=== PATIENT | male | born 1960 | race African-American/Black ===

== ENCOUNTER 2017-12-22 16:44 | Emergency (ER) | payer OTHER ==
[2017-12-22 16:56] VITALS: BP 142/74
--- NOTE | 2017-12-22 16:58 | ER Document Report ---
HPI - HPI Pain Level: 3 Notes: Patient presents with chief complaint of left knee pain. Patient reports this is been ongoing for approximately 1 year but worse over the last several weeks. Patient denies any new injury. Patient states he had been out of his meloxicam since August, recently had it refilled typically the meloxicam works well for him however this time he cannot get the pain under control. Patient is pending physical therapy start date of 12/29. Patient is able to bear weight on his knee. Past Medical History - General Information source: Patient - Social History Smoking Status: Never Smoker Lives with: Family Family History: Reviewed & Not Pertinent Past Surgical History: Reports: None - Immunizations Immunizations up to date: Yes Vertical Provider Document - CONSTITUTIONAL Notes: PHYSICAL EXAMINATION: GENERAL: Well-appearing, well-nourished and in no acute distress. HEAD: Atraumatic, normocephalic. EYES: Pupils equal round extraocular movements intact, conjunctiva are normal. ENT: Nares patent NECK: Normal range of motion LUNGS: No respiratory distress Musculoskeletal: Limitation to range of motion in left knee, no erythema or ecchymosis noted, mild swelling noted. Normal motor and sensation distal to injury. NEUROLOGICAL: Normal speech, normal gait. PSYCH: Normal mood, normal affect. SKIN: Warm, Dry, normal turgor, no rashes or lesions noted. - INFECTION CONTROL TRAVEL OUTSIDE OF THE [place] IN LAST 30 DAYS: No Course - Re-evaluation Re-evalutation: Patient declines x-rays as he has not had any new injury. Examination is benign other than mild edema. Patient will be treated with analgesics, keep appointments as already scheduled for physical therapy. Continue Mobic. Follow -up with primary care. - Vital Signs Vital signs: Temp Pulse Resp BP Pulse Ox 98.8 F 79 16 142/74 H 99 12/22/17 16:54 12/22/17 16:54 12/22/17 16:54 12/22/17 16:54 12/22/17 16:54 Procedures - Immobilization Left knee Immobilizer type: Crutches, Knee immobilizer Discharge - Discharge Clinical Impression: Knee pain, left Qualifiers: Chronicity: acute Qualified Code(s): M25.562 - Pain in left knee Condition: Stable Disposition: HOME, SELF-CARE Additional Instructions: SUSPECTED INTERNAL KNEE INJURY: The examiner of your injured knee suspects an internal injury to the cartilage or internal ligaments. This must be further investigated by an sports medicine specialist. The knee should be protected, ice packed, and elevated while awaiting your follow-up exam by the orthopedist. If there is severe swelling, severe pain, or any new symptoms while awaiting your exam, you should call the orthopedist. (If he/she is unavailable, call us or return for re-examination.) KNEE IMMOBILIZING SPLINT: The knee immobilizing splint will protect the injury while healing begins. This type of splint does not allow the knee to bend at all. No running or sports will be possible. If the splint allows painfree walking, it's giving adequate protection. If there is still significant pain, crutches may be needed as well. Don't do anything that hurts. Adjusted the splint, if necessary. The stiffeners on the sides are attached with Velcro, so they can be easily moved to adjust for thigh and calf size. If you need help with these adjustments, come back. You will lose muscle strength in the thigh while using this splint. The doctor will advise you if it's safe to do isometric knee exercises while you use it. USE OF CRUTCHES: The doctor has recommended that you not bear weight at this time. You will need to use crutches. Adjust the crutches so the tops come to about two inches under the armpit while you are standing upright. Use your hands -- not your armpits -- to support your weight. To get into a chair, support yourself with one crutch on the injured side. Hold the chair with the other hand, then lower yourself while putting all your weight on the good leg. Going up stairs is `good leg up, step up, then bring up crutches and bad leg.' Down stairs is `bad leg and crutches down, then bring good leg down.' If you develop numbness or swelling in an arm or hand, you are using the crutches incorrectly. Return if you are having any problems with the crutches. ICE & ELEVATION: Apply ice packs frequently against the painful area. Many different schedules are recommended, such as "20 minutes on, 20 minutes off" or "one hour ice, two hours rest." If you need to work, you may need to go longer between ice treatments. You should plan to have the area ice packed AT LEAST one- fourth of the time. The ice should be applied over the wrap, tape, or splint, or over a layer of cloth -- not directly against the skin. Some ice bags have a built-in cloth and can be put directly on the skin. Your injured part should be elevated as much as possible over the next 48 hours. Try to keep the injury above the level of the heart. Avoid use of the injured area. Elevation and rest will decrease the swelling. USE OF [id number] IBUPROFEN: Ibuprofen (Advil, Nuprin, Medipren, Motrin IB) is a medication for fever and pain control. In addition, it has anti- inflammatory effects which may be beneficial, especially in the treatment of injuries. It's best to take ibuprofen with food. Persons with ulcer disease or allergy to aspirin should notify their physician of this before taking ibuprofen. Ibuprofen can be given every four to six hours, for a total of four doses daily. Age Pain or fever dose Antiinflammatory dose 15-adult 400 mg (2 tab) 600 mg (3 tab) ORAL NARCOTIC MEDICATION: You have been given a prescription for pain control. This medication is a narcotic. It's best taken with food, as nausea can result if taken on an empty stomach. Don't operate machinery or drive within six hours of taking this medication. Do not combine this medicine with alcohol, or with any medication which can cause sedation (such as cold tablets or sleeping pills) unless you get permission from the physician. Narcotics tend to cause constipation. If possible, drink plenty of fluids and eat a diet high in fiber and fruits. Please be aware that prescription narcotics also have the potential for abuse. People become addicted to these medications because of the general sense of wellbeing that they induce. This feeling along with a significant reduction in tension, anxiety, and aggression provides a stimulating seductive quality to these drugs. Once your pain is under control, we encourage you to discard your unused narcotics. FOLLOW-UP CARE: If you have been referred to a physician for follow-up care, call the physician s office for an appointment as you were instructed or within the next two days. If you experience worsening or a significant change in your symptoms, notify the physician immediately or return to the Emergency Department at any time for re-evaluation. Please continue to take the meloxicam as prescribed by your primary care provider. Take the pain medication I have prescribed for the next several days. Use the diclofenac gel as directed. Keep the appointment you have scheduled to start physical therapy on 12/29. Prescriptions: Diclofenac Sodium [Voltaren] 5 gm TP Q12H #100 gel..gm. Hydrocodone/Acetaminophen [Hydrocodon-Acetaminophen 5-325] 1 each PO Q4H #12 tablet Lidocaine [Lidoderm 5% (700 mg) Transdermal Patch] 1 patch TP DAILY #30 adh..patch Forms: Return to Work
== END 2017-12-22 18:23 | disposition home or self-care (01) ==
LOC: ER 16:44
DX: M25.562 Pain in left knee (principal)
CPT/HCPCS: 99283; L1830

== ENCOUNTER → 2018-01-27 | Outpatient (CLI) | payer OTHER ==
[2018-01-27 13:06] LABS: ABSOLUTE BASOPHILS # (AUTO) 0.1 10^3/uL (0.0-0.2); ABSOLUTE EOSINOPHILS # (AUTO) 0.1 10^3/uL (0.0-0.6); ABSOLUTE LYMPHOCYTES (AUTO) 1.5 10^3/uL (0.5-4.7); ABSOLUTE MONOCYTES (AUTO) 0.3 10^3/uL (0.1-1.4); BASOPHILS % (AUTO) 1.1 % (0-2); EOSINOPHILS % (AUTO) 1.3 % (0-6); HEMATOCRIT 39.3 % (37.9-51.0); HEMOGLOBIN 13.3 g/dL (13.5-17.0); LYMPHOCYTES % (AUTO) 30.6 % (13-45); MEAN CORPUSCULAR HEMOGLOBIN 29.4 pg (27.0-33.4); MEAN CORPUSCULAR VOLUME 87 fl (80-97); MONOCYTES % (AUTO) 6.7 % (3-13); PLATELET COUNT 171 10^3/uL (150-450); RED BLOOD COUNT 4.54 10^6/uL (4.35-5.55); RED CELL DISTRIBUTION WIDTH 13.1 % (11.5-14.0); SEGMENTED NEUTROPHILS % (AUTO) 60.3 % (42-78); TOTAL CELLS COUNTED % (AUTO) 100 %; WHITE BLOOD COUNT 4.9 10^3/uL (4.0-10.5)
[2018-01-27 13:12] LABS: APPEARANCE,URINE CLEAR; BILIRUBIN,URINE NEGATIVE (NEGATIVE); COLOR,URINE YELLOW; GLUCOSE, URINE NEGATIVE (NEGATIVE); KETONES,URINE NEGATIVE (NEGATIVE); LEUKOCYTE ESTERASE,URINE NEGATIVE (NEGATIVE); NITRITE,URINE NEGATIVE (NEGATIVE); PROTEIN,URINE NEGATIVE (NEGATIVE); URINE SPECIFIC GRAVITY 1.012; UROBILINOGEN,URINE NEGATIVE mg/dL (<2.0)
[2018-01-27 13:21] LABS: ANION GAP 10 (5-19); BLOOD UREA NITROGEN 20 mg/dL (7-20); CALCIUM 9.2 mg/dL (8.4-10.2); CARBON DIOXIDE 27 mmol/L (22-30); CHLORIDE 109 mmol/L (98-107); GLUCOSE 94 mg/dL (75-110); POTASSIUM 4.9 mmol/L (3.6-5.0); SODIUM 146.3 mmol/L (137-145)
--- NOTE | 2018-01-27 13:44 | RADIOLOGY REPORT (SQ) ---
EXAM DESCRIPTION: CHEST PA/LATERAL COMPLETED DATE/TIME: 01/27/2018 12:48 pm REASON FOR STUDY: PRE-OP COMPARISON: None. EXAM PARAMETERS: NUMBER OF VIEWS: two views TECHNIQUE: Digital Frontal and Lateral radiographic views of the chest acquired. RADIATION DOSE: NA LIMITATIONS: none FINDINGS: LUNGS AND PLEURA: No opacities, masses or pneumothorax. No pleural effusion. MEDIASTINUM AND HILAR STRUCTURES: No masses or contour abnormalities. HEART AND VASCULAR STRUCTURES: Heart normal size. No evidence for failure. BONES: No acute findings. HARDWARE: None in the chest. OTHER: No other significant finding. IMPRESSION: NO SIGNIFICANT RADIOGRAPHIC FINDING IN THE CHEST. TECHNICAL DOCUMENTATION: JOB ID: [id number] [employer]- All Rights Reserved Reading location - IP/workstation name: [email or web address]
--- NOTE | 2018-01-28 10:38 | EKG REPORT ---
SEVERITY:- NORMAL ECG - SINUS RHYTHM : Confirmed by: Javon Pineda 28-Jan-2018 10:37:52
== END ==
LOC: OD 12:14
PROVIDERS: ATTEND Orthopaedic Surgery
DX: Z01.818 Encounter for other preprocedural examination (principal)
CPT/HCPCS: 36415; 71046; 80048; 81001; 85025; 93005; 93010

== ENCOUNTER 2018-02-21 08:52 | Inpatient (IN) | payer OTHER ==
[~2018-02-21 08:52] MED LIST: BUPIVACAINE HCL 0.25% /EPINEPHRINE INJ/PF 30 ML SDV ONE; BUPIVACAINE INJ/PF LIPOSOME/PF 266 MG/20 ML SDV IJ PRN; CEFAZOLIN INJ 1 GM VIAL IV PRN; IBUPROFEN 800 MG in DEXTROSE 5%-WATER 250 ML IV PRN; LACTATED RINGERS 1000 ML IV PRN; LANSOPRAZOLE 15 MG TAB.RAP.DR PO PRN; OXYCODONE HCL SR 10 MG TABLET PO PRN; THROMBIN (BOVINE) 5000 UNIT EPITAXIS KIT ONE; VANCOMYCIN HCL 1,000 MG in DEXTROSE 5%-WATER 250 ML IV PRN
[2018-02-21] MEDS ORDERED: CEFAZOLIN INJ 1 GM VIAL ONE (09:38)
[2018-02-21] MEDS ORDERED: LANSOPRAZOLE 15 MG TAB.RAP.DR ONE (09:38)
[2018-02-21] MEDS ORDERED: OXYCODONE HCL SR 10 MG TABLET PO ONE (09:38)
[2018-02-21] MEDS ORDERED: FENTANYL CITRATE INJ/PF 100 MCG/2 ML AMPUL ONE (12:21)
[2018-02-21] MEDS ORDERED: PROPOFOL INJ 200 MG/20 ML VIAL IV ONE (12:22)
[2018-02-21] MEDS ORDERED: EPHEDRINE SULFATE INJ 50 MG/1 ML AMPULE ONE (12:22)
[2018-02-21] MEDS ORDERED: TRANEXAMIC ACID INJ/PF 1,000 MG/10 ML SDV IV ONE ×3 (12:22→15:30)
[2018-02-21] MEDS ORDERED: MIDAZOLAM 2 MG/2 ML INJ ONE (12:22)
[2018-02-21] MEDS ORDERED: BUPIVACAINE HCL/DEX-WATER/PF 15 MG/2 ML AMPULE ONE (12:24)
[2018-02-21] MEDS ORDERED: DIPHENHYDRAMINE HCL 50 MG/ML VIAL IV PRN ×2 (13:17→13:43)
[2018-02-21] MEDS ORDERED: FENTANYL CITRATE INJ/PF 100 MCG/2 ML AMPUL IV PRN ×3 (13:17)
[2018-02-21] MEDS ORDERED: MORPHINE SULFATE 10 MG/ML INJ IV PRN ×4 (13:17→13:43)
[2018-02-21] MEDS ORDERED: OXYCODONE-ACETAMINOPHEN 5-325 MG TABLET PO PRN ×2 (13:17)
[2018-02-21] MEDS ORDERED: MEPERIDINE HCL/PF INJ 25 MG/1 ML DISP.SYRIN IV PRN (13:17)
[2018-02-21] MEDS ORDERED: PROMETHAZINE HCL INJ 25 MG/1 ML VIAL IV PRN ×2 (13:17)
[2018-02-21] MEDS ORDERED: MAG HYDROX/AL HYDROX/SIMETH SUSP 30 ML UDCUP PO PRN (13:43)
[2018-02-21] MEDS ORDERED: ONDANSETRON 4 MG TAB.RAPDIS PO PRN (13:43)
[2018-02-21] MEDS ORDERED: ACETAMINOPHEN 325 MG TABLET PO PRN (13:43)
[2018-02-21] MEDS ORDERED: ONDANSETRON HCL INJ/PF 4 MG/2 ML SDV IV PRN (13:43)
[2018-02-21] MEDS ORDERED: ZOLPIDEM TARTRATE 5 MG TABLET PO PRN (13:43)
[2018-02-21] MEDS ORDERED: RINGERS SOLUTION,LACTATED 1,000 ML IV PRN (13:43)
--- NOTE | 2018-02-21 13:43 | Operative Report ---
Operative Report DATE OF SURGERY: 02/21/18 PREOPERATIVE DIAGNOSIS: Left hip avascular necrosis OPERATION: Left hip arthroplasty SURGEON: LESLEY LIRA ANESTHESIA: Spinal TISSUE REMOVED OR ALTERED: Femoral head to pathology ESTIMATED BLOOD LOSS: 100 PROCEDURE: Implants used: Femur: Regular Accolade 2 stem, size 4 Acetabular shell: 56 mm hemispherical shell Liner: 36 mm flat cross-link polyethylene liner Head: A 36 mm chrome cobalt head -4 neck extension The patient is placed in a right lateral decubitus position on the operating table. The left lower extremity and hindquarter is prepped and draped in a sterile fashion. A curvilinear incision was made over the greater trochanter a posterior approach the hip was taken. The femoral head is dislocated and the femoral neck transected using an oscillating saw. Attention was next turned to the acetabulum. Soft tissues cleared off the acetabulum using electrocautery. The acetabulum was then prepared using a series of hemispherical reamers until a 56 millimeters reamer is seated. Subsequently a 56 millimeters [place] titanium hemispherical shell is impacted into position. A standard flat 36 millimeters cross-link liner is impacted into the shell. Attention was next turned to the femur. Access is gained to the femoral canal using a box osteotome to the piriformis fossa. The femur is then prepared using a series of broaches until a number 4 broach is seated. A trial reduction was now performed using a 36 millimeters head with -4 neck. Preoperative leg length was recreated and is excellent anterior posterior stability. A decision was made to proceed with the above construct. All trial implants were removed. The wound is irrigated with pulsed lavage. A number 4 stem is impacted into the femoral canal. A trial reduction was again performed with a 36 mm head and a -4 neck. Findings as previously. The hip was dislocated one last time and the final chrome-cobalt head is impacted onto the trunnion. The hip was reduced. Wound is copiously irrigated with pulsed lavage. Sent closed in layers using interrupted Vicryl followed by jeyson. A sterile dressing is applied and the patient's returned to recovery room in satisfactory patient.
[2018-02-21] MEDS ORDERED: ONDANSETRON HCL INJ/PF 4 MG/2 ML SDV ONE (14:37)
--- NOTE | 2018-02-21 14:52 | RADIOLOGY REPORT (SQ) ---
EXAM DESCRIPTION: PELVIS AP COMPLETED DATE/TIME: 02/21/2018 2:29 pm REASON FOR STUDY: Post Op Long Cassette in PACU M87.859 OTHER OSTEONECROSIS, UNSPECIFIED FEMUR COMPARISON: None. NUMBER OF VIEWS: One view TECHNIQUE: AP Pelvis LIMITATIONS: None. FINDINGS: MINERALIZATION: Normal. HIPS: Postoperative findings of left hip total arthroplasty with overlying skin jeyson and subcutane ous emphysema. No evidence of perihardware fracture. Advanced arthrosis of the right hip with femor al head collapse. PELVIS AND SACRUM: No acute fracture or dislocation. No worrisome bone lesions. PUBIS AND ISCHIUM: No acute fracture. LOWER LUMBAR SPINE: No significant findings as visualized. SOFT TISSUES: No findings. OTHER: No other significant finding. IMPRESSION: Postoperative findings of left hip total arthroplasty with overlying skin jeyson and martin bcutaneous emphysema. No evidence of perihardware fracture. Advanced arthrosis of the right hip wit h femoral head collapse. TECHNICAL DOCUMENTATION: JOB ID: [id number] [employer]- All Rights Reserved Reading location - IP/workstation name: [email or web address]
[2018-02-21] MEDS ORDERED: IBUPROFEN 800 MG in DEXTROSE 5%-WATER 250 ML IV SCH (18:00)
[2018-02-21] MEDS: IBUPROFEN 800 MG in NORMAL SALINE 250 ML IV SCH (18:43)
[2018-02-21] MEDS: SENNOSIDES/DOCUSATE 8.6-50 MG 1 EACH TABLET PO SCH (18:43)
[2018-02-21] MEDS: OXYCODONE HCL IR 5 MG TABLET PO PRN (18:43)
[2018-02-21] MEDS: MORPHINE SULFATE 10 MG/ML INJ IV PRN (20:44)
[2018-02-21] MEDS: OXYCODONE HCL SR 10 MG TABLET PO SCH (21:06)
[2018-02-22] MEDS: IBUPROFEN 800 MG in NORMAL SALINE 250 ML IV SCH ×3 (01:23→17:49)
[2018-02-22] MEDS ORDERED: VANCOMYCIN HCL 1,000 MG in DEXTROSE 5%-WATER 250 ML IV ONE (01:43)
[2018-02-22] MEDS: LANSOPRAZOLE 30 MG TAB.RAP.DR PO SCH (05:47)
[2018-02-22 06:55] LABS: HEMATOCRIT 33.6 % (37.9-51.0); HEMOGLOBIN 11.4 g/dL (13.5-17.0); MEAN CORPUSCULAR HEMOGLOBIN 29.2 pg (27.0-33.4); MEAN CORPUSCULAR VOLUME 86 fl (80-97); PLATELET COUNT 128 10^3/uL (150-450); RED CELL DISTRIBUTION WIDTH 13.3 % (11.5-14.0); WHITE BLOOD COUNT 6.6 10^3/uL (4.0-10.5)
--- NOTE | 2018-02-22 07:09 | PDOC PROGRESS REPORT ---
Subjective Progress Note for:: 02/22/18 Reason For Visit: LEFT HIP AVASCULAR NECROSIS 58-year-old black male postop day 1 status post left total hip arthroplasty for avascular necrosis. Patient with minimal complaints today. Physical Exam Vital Signs: Temp Pulse Resp BP Pulse Ox 36.9 C 80 15 121/61 99 02/21/18 23:53 02/21/18 23:53 02/21/18 23:53 02/21/18 23:53 02/21/18 23:53 Intake & Output 02/21/18 02/22/18 02/23/18 06:59 06:59 06:59 Intake Total 3922 Output Total 2550 Balance 1372 Weight 82 kg General appearance: PRESENT: no acute distress Head exam: PRESENT: normocephalic Respiratory exam: PRESENT: unlabored Cardiovascular exam: PRESENT: RRR Pulses: PRESENT: +1 pedal pulses bilateral Vascular exam: PRESENT: normal capillary refill GI/Abdominal exam: PRESENT: soft Rectal exam: PRESENT: deferred Extremities exam: PRESENT: other - Left hip dressing clean dry and intact. Leg lengths equal. Distal neurovascular examination is intact. Neurological exam: PRESENT: alert, awake, oriented to person, oriented to place , oriented to time, oriented to situation. ABSENT: motor sensory deficit Psychiatric exam: PRESENT: appropriate affect, normal mood. ABSENT: homicidal ideation, suicidal ideation Skin exam: PRESENT: dry, intact, warm. ABSENT: cyanosis, rash Results Laboratory Results: 02/22/18 05:42 02/21/18 02/22/18 09:33 05:42 WBC 6.6 RBC 3.90 L Hgb 11.4 L Hct 33.6 L MCV 86 MCH 29.2 MCHC 34.0 RDW 13.3 Plt Count 128 L Blood Type B POSITIVE Antibody Screen NEGATIVE Impressions: Pelvis X-Ray 02/21/18 13:46 IMPRESSION: Postoperative findings of left hip total arthroplasty with overlying skin jeyson and subcutaneous emphysema. No evidence of perihardware fracture. Advanced arthrosis of the right hip with femoral head collapse. Status: Imported from PACS Assessment & Plan - Diagnosis (1) Avascular necrosis of bone of left hip Is this a current diagnosis for this admission?: Yes Plan: Patient mobilized with physical therapy and weightbearing as tolerated basis. Anticipate discharge home tomorrow with home health services. - Time Time Spent with patient: 15-24 minutes Anticipated discharge: Home with Homehealth Within: within 24 hours
[2018-02-22 07:18] LABS: ANION GAP 10 (5-19); BLOOD UREA NITROGEN 14 mg/dL (7-20); CALCIUM 8.3 mg/dL (8.4-10.2); CARBON DIOXIDE 24 mmol/L (22-30); CHLORIDE 105 mmol/L (98-107); GLUCOSE 148 mg/dL (75-110); POTASSIUM 4.3 mmol/L (3.6-5.0); SODIUM 139.4 mmol/L (137-145)
[2018-02-22] MEDS: MORPHINE SULFATE 10 MG/ML INJ IV PRN (07:34)
[2018-02-22] MEDS: ASPIRIN 81 MG TABLET, ENT COATED PO SCH (09:43)
[2018-02-22] MEDS: OXYCODONE HCL SR 10 MG TABLET PO SCH ×2 (09:43→21:34)
[2018-02-22] MEDS: PRENATAL VITAMIN W DHA CAPSULE PO SCH (09:44)
[2018-02-22] MEDS: SENNOSIDES/DOCUSATE 8.6-50 MG 1 EACH TABLET PO SCH ×2 (09:44→17:54)
[2018-02-22] MEDS: OXYCODONE HCL IR 5 MG TABLET PO PRN (17:49)
[2018-02-23] MEDS: IBUPROFEN 800 MG in NORMAL SALINE 250 ML IV SCH ×2 (01:07→12:12)
[2018-02-23] MEDS: LANSOPRAZOLE 30 MG TAB.RAP.DR PO SCH (05:29)
[2018-02-23 05:55] LABS: HEMATOCRIT 30.9 % (37.9-51.0); HEMOGLOBIN 10.7 g/dL (13.5-17.0); MEAN CORPUSCULAR HEMOGLOBIN 29.7 pg (27.0-33.4); MEAN CORPUSCULAR HGB CONC 34.6 g/dL (32.0-36.0); MEAN CORPUSCULAR VOLUME 86 fl (80-97); PLATELET COUNT 122 10^3/uL (150-450); RED BLOOD COUNT 3.59 10^6/uL (4.35-5.55); RED CELL DISTRIBUTION WIDTH 13.5 % (11.5-14.0)
--- NOTE | 2018-02-23 07:15 | PDOC DISCHARGE SUMMARY ---
General - Admit/Disc Date/PCP Admission Date/Primary Care Provider: 02/21/18 08:52 DOROTEO ARTHUR MD Discharge Date: 02/23/18 - Discharge Diagnosis (1) Avascular necrosis of bone of left hip Is this a current diagnosis for this admission?: Yes - Additional Information Resuscitation Status: Full Code Home Medications: Meloxicam [Mobic] 15 mg PO DAILY 02/07/18 History of Present Illness History of Present Illness: SALBADOR WILLETT is a 58 year old male Patient is a 58-year-old black male with progressive pain and functional disability secondary to left hip avascular necrosis. Patient is admitted for elective left hip arthroplasty. Hospital Course Hospital Course: Patient is admitted through the operating where he undergoes unconjugated left hip arthroplasty. Is returned to floor in satisfactory condition. Physical therapy is unable to address the patient on the first on the day of surgery because of prolonged anesthetic effects. He seen by physical therapy on postop day 1 and begins a weightbearing as tolerated toward program makes excellent progress. He subsequently assessed as having adequate function for discharge home with home health services. Physical Exam Vital Signs: Temp Pulse Resp BP Pulse Ox 37.2 C 83 18 120/62 96 02/22/18 23:29 02/22/18 23:29 02/22/18 23:29 02/22/18 23:29 02/22/18 23:29 Intake & Output 02/22/18 02/23/18 02/24/18 06:59 06:59 06:59 Intake Total 3922 1978 Output Total 2550 1000 Balance 1372 978 Weight 82 kg General appearance: PRESENT: no acute distress, mild distress Head exam: PRESENT: normocephalic Respiratory exam: PRESENT: unlabored Cardiovascular exam: PRESENT: RRR Pulses: PRESENT: +1 pedal pulses bilateral Vascular exam: PRESENT: normal capillary refill GI/Abdominal exam: PRESENT: soft Rectal exam: PRESENT: deferred Extremities exam: PRESENT: other - Left hip dressing remains clean dry and intact. There is a slight leg length discrepancy left longer than right, distal neurovascular examination is intact. Neurological exam: PRESENT: alert, awake, oriented to person, oriented to place , oriented to time, oriented to situation. ABSENT: motor sensory deficit Psychiatric exam: PRESENT: appropriate affect, normal mood. ABSENT: homicidal ideation, suicidal ideation Skin exam: PRESENT: dry, intact, warm. ABSENT: cyanosis, rash Results Laboratory Results: 02/23/18 05:05 02/22/18 05:42 02/22/18 02/23/18 05:42 05:05 WBC 7.0 RBC 3.59 L Hgb 10.7 L Hct 30.9 L MCV 86 MCH 29.7 MCHC 34.6 RDW 13.5 Plt Count 122 L Sodium 139.4 Potassium 4.3 Chloride 105 Carbon Dioxide 24 Anion Gap 10 BUN 14 Creatinine 1.05 Est GFR ( Amer) > 60 Est GFR (Non-Af Amer) > 60 Glucose 148 H Calcium 8.3 L Impressions: Pelvis X-Ray 02/21/18 13:46 IMPRESSION: Postoperative findings of left hip total arthroplasty with overlying skin jeyson and subcutaneous emphysema. No evidence of perihardware fracture. Advanced arthrosis of the right hip with femoral head collapse. Status: Imported from PACS Qualifiers - * PATIENT BEING DISCHARGED WITH ANY OF THE FOLLOWING DIAGNOSIS: No VTE patient discharged on overlapping Therapy?: Yes Plan Discharge Plan: Patient to be discharged home with home health services and DME. Follow-up with Dr. Duffy [facility] for surgery in 2 weeks for staple removal.
[2018-02-23] MEDS: ASPIRIN 81 MG TABLET, ENT COATED PO SCH (09:34)
[2018-02-23] MEDS: PRENATAL VITAMIN W DHA CAPSULE PO SCH (09:34)
[2018-02-23] MEDS: OXYCODONE HCL SR 10 MG TABLET PO SCH (09:34)
[2018-02-23] MEDS: SENNOSIDES/DOCUSATE 8.6-50 MG 1 EACH TABLET PO SCH (09:34)
[2018-02-23 12:58] VITALS: BP 128/65
== END 2018-02-23 13:17 | disposition home health service (06) | DRG 470 ==
LOC: INOR 08:52 → 4S 15:20
PROVIDERS: ADMIT Orthopaedic Surgery; ATTEND Orthopaedic Surgery
PROC: 0SRB02Z Replacement of Left Hip Joint with Metal on Polyethylene Synthetic Substitute, Open Approach (ICD-10-PCS; principal; 2018-02-21 11:15)
DX: M87.852 Other osteonecrosis, left femur (principal); F17.200 Nicotine dependence, unspecified, uncomplicated; Z83.3 Family history of diabetes mellitus
CPT/HCPCS: 01214; 36415; 72170; 80048; 85027; 86850; 86900; 86901; 88304; 88311; 94799; C1776; J0690; J1741; J2250; J2270; J2405; J2704; J3010; J3370; J3490; J7050; J7060; J7120

== ENCOUNTER → 2018-03-02 | Outpatient (CLI) | payer OTHER ==
--- NOTE | 2018-03-03 11:42 | XCELERA REPORT ---
[address] [place] [facility] [address] Lower Extremity Venous Evaluation Procedure: Color flow and duplex imaging of the veins of the left lower extremity as well as the right Common Femoral vein. Right Sided Venous Evaluation The right common femoral vein is fully compressible. Spontaneous and phasic flow is present in the right common femoral vein. Left Sided Venous Evaluation Normal vessel filling wall to wall, compression and augmentation as well as Colour flow down to the infrageniculate veins. Interpretation Summary No duplex evidence of DVT or obstruction in the left lower extremity nor in the right Common Femoral vein. Name: SALBADOR WILLETT Age: 58 yrs Gender: Male : 1960 Patient Status: Outpatient Patient Location: [facility] Study Date: 03/02/2018 07:22 PM Reason For Study: LLE SWELLING Ordering Physician: LESLEY LIRA Performed By: Cee Garzon : LESLEY LIRA > Everardo Starks
== END ==
LOC: RAD 18:34
PROVIDERS: ATTEND Orthopaedic Surgery
DX: M79.89 Other specified soft tissue disorders (principal)
CPT/HCPCS: 93971

== ENCOUNTER → 2019-04-18 | Outpatient (CLI) | payer MEDICAID ==
--- NOTE | 2019-04-19 16:40 | XCELERA REPORT ---
[address] [address] Lower Extremity Arterial Evaluation Name: SALBADOR WILLETT Age: 59 yrs Gender: Male : 1960 Patient Status: Outpatient Patient Location: Study Date: 04/18/2019 11:15 AM Procedure: A color flow and duplex scan of the lower extremity arteries was performed bilaterally with velocity and waveform anaylsis. Reason For Study: PVD Ordering Physician: TAY VICTORIA Performed By: Kusum Ceja Measurements and Calculations Right Left ELECTRONIC MAINTENANCE SUPERVISOR PSV 115.2 122.6 cm/sec Prox PFA PSV -87.9 -59.3 cm/sec Prox Pop A PSV 99.8 80.5 cm/sec Dist Pop A PSV -63.8 -71.2 cm/sec Prox [place] PSV 93.9 91.3 cm/sec Dist [place] PSV 68.4 -67.6 cm/sec Prox FIBROUS WALLBOARD INSPECTOR PSV 63.3 77.1 cm/sec Dist FIBROUS WALLBOARD INSPECTOR PSV 52.8 70.7 cm/sec Prox Marlon A 83.4 cm/sec PSV Mid Marlon A PSV 67.6 cm/sec Jacky Pedis PSV -71.2 -65.2 cm/sec Right Side Arterial Evaluation Normal velocity and triphasic waveforms noted from the Common Femoral artery to the infrageniculate vessels . Ankle Brachial index not done. Left Side Arterial Evaluation Normal velocity and triphasic waveforms noted from the Common Femoral artery to the infrageniculate vessels . Ankle Brachial index not done. Interpretation Summary No hemodynamically significant lesions in the bilateral lower extremities, on duplex imaging, at rest. : TAY VICTORIA > Everardo Starks
== END ==
LOC: SP 10:31
PROVIDERS: ATTEND Internal Medicine
DX: I73.9 Peripheral vascular disease, unspecified (principal)
CPT/HCPCS: 93925

== ENCOUNTER → 2019-05-04 | Outpatient (CLI) | payer MEDICAID ==
--- NOTE | 2019-05-04 13:41 | RADIOLOGY REPORT (SQ) ---
EXAM DESCRIPTION: KNEE BILAT AP UPRIGHT COMPLETED DATE/TIME: 05/04/2019 10:27 am REASON FOR STUDY: BILATERAL PRIMARY OSTEOARTHRITIS OF KNEE M17.0 BILATERAL PRIMARY OSTEOARTHRITIS O F KNEE COMPARISON: None. NUMBER OF VIEWS: Two views. TECHNIQUE: AP standing bilateral knees. LIMITATIONS: None. FINDINGS: There is mild joint space narrowing in the medial compartments bilaterally. IMPRESSION: Mild osteoarthritis. TECHNICAL DOCUMENTATION: JOB ID: [id number] 2010 [employer]- All Rights Reserved Reading location - IP/workstation name: [email or web address]
== END ==
LOC: OD 10:14
PROVIDERS: ATTEND Internal Medicine
DX: M17.0 Bilateral primary osteoarthritis of knee (principal)
CPT/HCPCS: 73565

== ENCOUNTER → 2019-06-08 | Outpatient (CLI) | payer MEDICAID ==
--- NOTE | 2019-06-08 13:23 | RADIOLOGY REPORT (SQ) ---
EXAM DESCRIPTION: CT CHEST WITH COMPLETED DATE/TIME: 06/08/2019 1:09 pm REASON FOR STUDY: J44.9 CHRONIC OBSTRUCTIVE PULMONARY DISEASE, UNSPECIFIED R05 COUGH J44.9 CHRONIC OBSTRUCTIVE PULMONARY DISEASE, UNSPECIFIED COMPARISON: PET-CT dated 10/11/2018, CT chest dated 09/20/2018 TECHNIQUE: CT scan of the chest performed using helical scanning technique with dynamic intravenous contrast injection. Images reviewed with lung, soft tissue and bone windows. Reconstructed coronal and sagittal MPR and MIP images reviewed. All images stored on PACS. All CT scanners at this facility use dose modulation, iterative reconstruction, and/or weight based d osing when appropriate to reduce radiation dose to as low as reasonably achievable (ALARA). [facility]: Dose Right [facility]: CareDose [facility]: Dose Right [facility]: Teradose 4D [facility]: LawnStarter CONTRAST TYPE AND DOSE: contrast/concentration: Isovue 350.00 mg/ml; Total Contrast Delivered: 80.0 ml; Total Saline Delivered: 36.3 ml RENAL FUNCTION: Creatinine 1.1 RADIATION DOSE: CT Rad equipment meets quality standard of care and radiation dose reduction techniq ues were employed. CTDIvol: 10.9 mGy. DLP: 415 mGy-cm. . LIMITATIONS: None. FINDINGS: LUNGS AND PLEURA: Left lower lobe nodules unchanged. This is adjacent to the diaphragm in measures approximately 1.5 cm. No new nodules. No consolidation HILAR AND MEDIASTINAL STRUCTURES: No identified masses or abnormal nodes. HEART AND VASCULAR STRUCTURES: No aneurysm or dissection. No central pulmonary emboli. No pericardi al effusion. HARDWARE: None in the chest. UPPER ABDOMEN: No significant findings. Limited exam. THYROID AND OTHER SOFT TISSUES: No masses. No adenopathy. BONES: No significant finding. OTHER: No other significant finding. IMPRESSION: Stable 1.5 cm left lower lobe nodule no other significant findings in the chest. TECHNICAL DOCUMENTATION: JOB ID: [id number] Quality ID # [id number]: Final reports with documentation of one or more dose reduction techniques (e.g., Au tomated exposure control, adjustment of the mA and/or kV according to patient size, use of iterative reconstruction technique) 2010 [employer]- All Rights Reserved Reading location - IP/workstation name: [email or web address]
== END ==
LOC: RAD 12:41
PROVIDERS: ATTEND Internal Medicine
DX: J44.9 Chronic obstructive pulmonary disease, unspecified (principal); R05 Cough; R91.1 Solitary pulmonary nodule
CPT/HCPCS: 71260; 82565